=== PATIENT | female | born 1955 | race Caucasian/White ===

== ENCOUNTER → 2016-11-30 | Outpatient (CLI) | payer OTHER ==
[~2016-11-30] MED LIST: ASPI81TA2 PO; DIPH25CA84 PO; DOCU100T10 PO; LISI1TAB9 PO; MELO-267 PO; OMEG1CAP79 PO; PENT100C8 PO; SERT50TA12 PO; SIMV40TA82 PO; [UNRECOGNIZED DRUG - CODE] VG
--- NOTE | 2016-11-30 10:12 | DI ---
Indication:ITS.REASON: K22.4 ESOPHAGEAL SPASM Procedure:ESOPHAGRAM ESOPHAGRAM: Technique:After ingesting air crystals, the patient swallowed thick and thin barium without difficulty. Fluoroscopic imaging was obtained in the upright LPO, supine AP, and right lateral positions. Findings:There is mild intraesophageal stasis of barium, consistent with a minimal amount of esophageal dysmotility. The remainder of the esophagus is negative. The cricopharyngeus muscle relaxes completely. There is no Zenker's diverticulum. No hiatal hernia or gastroesophageal reflux is visualized. Impression: Minimal amount of esophageal dysmotility. Fluoroscopy dose: 113.35 mGy (Cumulative air kerma) Evangelista Perez RPA/RICARDO performed this under my direct supervision. .
== END ==
LOC: IMA 08:40
PROVIDERS: ATTEND Nurse Practitioner
DX: K22.4 Dyskinesia of esophagus (principal)